=== PATIENT | female | born 1970 | race Caucasian/White ===

== ENCOUNTER 2020-03-15 11:33 | Emergency (ER) | payer SELFPAY ==
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
--- NOTE | 2020-03-15 13:21 | CT ---
CT chest Technique: Multiple axial sections were obtained from above the lung apices inferiorly through the lung bases. Intravenous contrast not utilized. Comparison: No prior chest imaging is available. Findings: Mediastinum and hilar region show no adenopathy. Aorta shows no aneurysm. No pericardial thickening is seen. Visualized upper abdominal structures show nothing acute. Small cyst partially visualized within the left kidney. Abnormality is noted within the upper pole of the left kidney which could be solid or cystic and measures 4.8 cm in greatest dimension. Further workup will be needed. Small nodule noted within the left lower lung measuring about 3 mm. 2nd small nodule is noted within the left lower lung measuring 3 mm. Small nodule is noted within the right lung base measuring 5 mm. No additional nodule is seen. Subpleural blebs noted within both lung apices. Slight parenchymal density noted within the left lung base most likely due to atelectasis. Bone window settings were reviewed which shows no acute osseous finding. Impression: 1. 3 small nodules within the chest. Recommend repeat study in 6 months to confirm stability. This can be performed in August,. This can be performed without IV contrast. 2. Other findings as described above which are believed to be incidental. 3. Nonspecific solid versus cyst within the left upper kidney. Renal ultrasound strongly recommended to further evaluate. Diagnostic code #9 This report was dictated in MDT
== END 2020-03-15 14:20 | disposition home or self-care (01) ==
LOC: JD.ED 11:33
DX: S20.212A Contusion of left front wall of thorax, initial encounter (principal); R91.1 Solitary pulmonary nodule; N28.89 Other specified disorders of kidney and ureter; W19.XXXA Unspecified fall, initial encounter; Y93.39 Activity, other involving climbing, rappelling and jumping off
CPT/HCPCS: 71250; 71250-26; 99283; 99284-25

== ENCOUNTER 2020-06-01 23:34 | Emergency (ER) | payer SELFPAY ==
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
== END 2020-06-02 00:43 | disposition home or self-care (01) ==
LOC: JD.ED 23:34
DX: S60.211A Contusion of right wrist, initial encounter (principal); W22.8XXA Striking against or struck by other objects, initial encounter
CPT/HCPCS: 73110-26-RT; 73110-RT; 99282; 99284-25